=== PATIENT | female | born 1950 | race Caucasian/White ===

== ENCOUNTER 2023-04-23 08:00 | Outpatient (CLI) | payer BC, MEDICARE ==
--- NOTE | 2023-04-23 12:54 | XRAY Report ---
PROCEDURE: Ribs w/PA Chest RT INDICATIONS: CONTUSION OF RIGHT FRONT WALL OF THORAX TECHNIQUE: 2 views of the right ribs were acquired, along with a single view chest. COMPARISON: None. FINDINGS: Surgical changes and devices: None. Bones and chest wall: Minimally displaced fractures of the anterolateral right sixth and seventh rib s is noted. Questionable cortical irregularity in the eighth rib. Degenerative changes are seen in th e spine. Lungs and pleura: No pleural effusions or pneumothorax. Lungs appear clear. Mediastinum: Mediastinal contours appear normal. Heart size is normal. IMPRESSION: Minimally displaced right 6th and 7th rib fractures. Questionable nondisplaced 8th rib fracture. No p neumothorax or pleural effusion. Reviewed by: Edd Roblero MD on 04/23/2023 12:53 PM PDT Approved by: Edd Roblero MD on 04/23/2023 12:53 PM PDT Station ID: [id number]
== END 2023-04-23 23:59 | disposition home or self-care (01) ==
LOC: DI.S 08:00
PROVIDERS: ATTEND Emergency Medicine
DX: S20.211A Contusion of right front wall of thorax, initial encounter (principal); S22.41XA Multiple fractures of ribs, right side, initial encounter for closed fracture